=== PATIENT | male | born 1995 | race Caucasian/White ===

== ENCOUNTER → 2023-01-11 | Outpatient (CLI) | payer OTHER ==
[2023-01-11 13:52] LABS: African American GFR (CKD) >90 (>60 ml/min/1.73 sqM); Blood Urea Nitrogen 11 mg/dL (9-20); Non-African American GFR(CKD) >90 (>60 ml/min/1.73 sqM)
[2023-01-11 14:08] LABS: T4, Free (Free Thyroxine) 1.26 ng/dL (0.78-2.19)
[2023-01-11 14:28] LABS: Lithium 0.5 mmol/L
== END | disposition home or self-care (01) ==
LOC: LABMAIN 10:18
PROVIDERS: ATTEND Psychiatry & Neurology Psychiatry
DX: Z53.9 Procedure and treatment not carried out, unspecified reason (principal)
CPT/HCPCS: 80178; 82565; 84439; 84443; 84520

== ENCOUNTER 2023-04-21 18:13 | Emergency (ER) | payer BC, OTHER ==
[2023-04-21] MEDS ORDERED: DIPH,PERTUS(ACELL)TETVAC-LF 0.5 ML VIAL IM ONE (18:56)
[2023-04-21] MEDS ORDERED: LIDOCAINE 1% INJ 10MG/ML (20 ML MDV) SQ ONE (18:56)
--- NOTE | 2023-04-21 18:56 | ED ---
General Adult HPI - General Source: patient, RN notes reviewed Mode of arrival: ambulatory Limitations: no limitations <Shannan Beach - Last Filed: 04/21/23 18:56> - General Source: patient, RN notes reviewed Mode of arrival: ambulatory Limitations: no limitations <Ainsley Centeno - Last Filed: 04/21/23 22:46> - General Chief complaint: Wound/Laceration Stated complaint: R Hand-Ring Finger Lac Time Seen by Provider: 04/21/23 18:56 - History of Present Illness Initial comments: 27-year-old male presents the emergency department with chief complaint of right hand lacerations. (Shannan Beach) Patient is a 27-year-old male presented ER with chief complaint of right finger lacerations. Patient states he was carrying a glass pitcher and accidentally tripped breaking the pitcher. He states his third and fourth digits were cut to from the broken glass. Patient denies any paresthesias, limited range of motion, other injuries or active bleeding. Tetanus unknown. (Ainsley Centeno) - Related Data Allergies Allergy/AdvReac Type Severity Reaction Status Date / Time No Known Allergies Allergy Verified 04/21/23 18:55 Review of Systems ROS Other: All systems not noted in ROS Statement are negative. <Shannan Beach - Last Filed: 04/21/23 18:56> ROS Other: All systems not noted in ROS Statement are negative. <Ainsley Centeno - Last Filed: 04/21/23 22:46> ROS Statement: Those systems with pertinent positive or pertinent negative responses have been documented in the HPI. Past Medical History Past Medical History: Seizure Disorder History of Any Multi-Drug Resistant Organisms: None Reported Past Surgical History: Appendectomy Past Psychological History: Bipolar, Depression Smoking Status: Vaper Past Alcohol Use History: Rare Past Drug Use History: Marijuana <Shannan Beach - Last Filed: 04/21/23 18:56> General Exam Limitations: no limitations <Shannan Beach - Last Filed: 04/21/23 18:56> General appearance: alert, in no apparent distress Head exam: Present: atraumatic, normocephalic, normal inspection Respiratory exam: Present: normal lung sounds bilaterally. Absent: respiratory distress, wheezes, rales, rhonchi, stridor Cardiovascular Exam: Present: regular rate, normal rhythm, normal heart sounds. Absent: systolic murmur, diastolic murmur, rubs, gallop, clicks Extremities exam: Present: normal inspection, full ROM, normal capillary refill, other (1cm laceration to third digit PIP joint. No active bleeding. Deep structures intact. Sensation intact. Full active range of motion. 3 cm laceration noted to fourth PIP joint. No active bleeding. Deep structures are intact. Sensation intact. Full active range of motion.). Absent: tenderness, pedal edema, joint swelling, calf tenderness Neurological exam: Present: alert, oriented X3, CN II-XII intact Psychiatric exam: Present: normal affect, normal mood Skin exam: Present: warm, dry, intact, normal color. Absent: rash <Ainsley Centeno - Last Filed: 04/21/23 22:46> - General Exam Comments Initial Comments: Visual Physical Exam Vital signs reviewed General: Well-appearing, nontoxic, no acute distress. Head: Normocephalic, atraumatic Eyes: PERRLA, EOMI ENT: Airway patent Chest: Nonlabored breathing Skin: No visual rash, normal skin tone Neuro: Alert and oriented 3 Musculoskeletal: No gross abnormalities (Shannan Beach) Course Vital Signs 04/21/23 18:51 Pulse Rate 79 Respiratory 18 Rate Blood Pressure 140/74 O2 Sat by Pulse 96 Oximetry Procedures - Laceration Laceration #1 Consent Obtained: verbal consent Indication: laceration Site: hand Size (cm): 1 Description: linear Depth: simple, single layer Anesthetic Used: lidocaine 1% Anesthesia Technique: local infiltration Amount (mls): 3 Pre-repair: wound explored, irrigated extensively, deep structures intact Type of Sutures: nylon Size of Sutures: 4-0 Number of Sutures: 2 Technique: simple, interrupted Patient Tolerated Procedure: well, no complications Laceration #2 Consent Obtained: verbal consent Indication: laceration Site: hand Size (cm): 3 Description: linear Depth: simple, single layer Anesthetic Used: lidocaine 1% Amount (mls): 3 Pre-repair: wound explored, irrigated extensively, deep structures intact Type of Sutures: nylon Size of Sutures: 4-0 Number of Sutures: 7 Technique: simple, interrupted Patient Tolerated Procedure: well, no complications <Ainsley Centeno - Last Filed: 04/21/23 22:46> Medical Decision Making <Shannan Beach - Last Filed: 04/21/23 18:56> - Radiology Data Radiology results: report reviewed, image reviewed <Ainsley Centeno - Last Filed: 04/21/23 22:46> - Medical Decision Making I performed the quick note portion of this exam, verbal signature Shannan Beach PA-C (Shannan Beach) Was pt. sent in by a medical professional or institution ([facility], RADIATION ONCOLOGY NURSE, urgent care, hospital, or skilled nursing...) When possible be specific @ -No Did you speak to anyone other than the patient for history (EMS, parent, family, police, friend...)? What history was obtained from this source @ -No Did you review nursing and triage notes (agree or disagree)? Why? @ -I reviewed and agree with nursing and triage notes Were old charts reviewed (outside hosp., previous admission, EMS record, old EKG, old radiological studies, urgent care reports/EKG's, skilled nursing records)? Report findings @ -No old charts were reviewed Differential Diagnosis (chest pain, altered mental status, abdominal pain women, abdominal pain men, vaginal bleeding, weakness, fever, dyspnea, syncope, headache, dizziness, GI bleed, back pain, seizure, CVA, palpatations, mental health, musculoskeletal)? @ -Differential Musculoskeletal: Laceration, Muscular strain, contusion, ligament sprain, fracture, arthritis, septic arthritis, bursitis, cellulitis, muscle spasm, nerve compression, DVT, arterial occlusion, herpes zoster, electrolyte abnormality, tumor.... This is not meant to be in all inclusive list EKG interpreted by me (3pts min.). @ -None X-rays interpreted by me (1pt min.). @ -[Right hand x-ray negative for acute foreign body, fracture, or dislocation. CT interpreted by me (1pt min.). @ -None done U/S interpreted by me (1pt. min.). @ -None done What testing was considered but not performed or refused? (CT, X-rays, U/S, labs)? Why? @ -None What meds were considered but not given or refused? Why? @ -None Did you discuss the management of the patient with other professionals (professionals i.e. , PA, RADIATION ONCOLOGY NURSE, lab, RT, psych nurse, web content & social media manager, exhibition specialist, teacher, police officer booking, pillowcase cleaner)? Give summary @ -No Was smoking cessation discussed for >3mins.? @ -No Was critical care preformed (if so, how long)? @ -No Were there social determinants of health that impacted care today? How? (Homelessness, low income, unemployed, alcoholism, drug addiction, transportation, low edu. Level, literacy, decrease access to med. care, shelter, rehab)? @ -No Was there de-escalation of care discussed even if they declined (Discuss DNR or withdrawal of care, Hospice)? DNR status @ -No What co-morbidities impacted this encounter? (DM, HTN, Smoking, COPD, CAD, Cancer, CVA, ARF, Chemo, Hep., AIDS, mental health diagnosis, sleep apnea, morbid obesity)? @ -None Was patient admitted / discharged? Hospital course, mention meds given and route, prescriptions, significant lab abnormalities, going to OR and other pertinent info. @ -Discharge. Patient is a 27-year-old male presented ER with chief complaint of lacerations. Upon examination, patient's vital signs are stable. X-ray showed no acute foreign bodies, fractures or dislocations. Tetanus was updated. Wounds were cleaned with Betadine and sterile water. Lacerations were numbed using lidocaine and closed using 4-0 nylon simple interrupted sutures. Patient tolerated procedure well. Patient maintained full range of motion after procedure. Neurovascularly intact. I advised patient to have sutures removed in 7-10 days. Suture care was discussed. Return parameters were discussed. Patient was discharged stable condition with follow-up to PCP. Patient expressed understanding and agreement with care plan. Undiagnosed new problem with uncertain prognosis? @ -No Drug Therapy requiring intensive monitoring for toxicity (Heparin, Nitro, Insul in, Cardizem)? @ -No Were any procedures done? @ -Yes Diagnosis/symptom? @ -Lacerations Acute, or Chronic, or Acute on Chronic? @ -Acute Uncomplicated (without systemic symptoms) or Complicated (systemic symptoms)? @ -Uncomplicated Side effects of treatment? @ -No Exacerbation, Progression, or Severe Exacerbation? @ -No Poses a threat to life or bodily function? How? (Chest pain, [place], PR, pneumonia, PE, COPD, DKA, ARF, appy, cholecystitis, CVA, Diverticulitis, Homicidal, Suicidal, threat to staff... and all critical care pts) @ -No (Ainsley Centeno) Disposition <Shannan Beach - Last Filed: 04/21/23 18:56> Is patient prescribed a controlled substance at d/c from ED?: No Time of Disposition: 21:48 <Ainsley Centeno - Last Filed: 04/21/23 22:46> Clinical Impression: Laceration Disposition: HOME SELF-CARE Condition: Stable Additional Instructions: Please have sutures removed in 7-10 days. Monitor for signs of infection and keep area clean and dry. Please return to the ER for any new or worsening symptoms. Referrals: None,Stated [REFERRING] - 1-2 days
[2023-04-21 19:15] VITALS: BP 140/74; PULSE 79; RESP 18
--- NOTE | 2023-04-21 22:12 | XR ---
EXAMINATION TYPE: XR hand complete RT DATE OF EXAM: 04/21/2023 8:49 PM CLINICAL INDICATION:Male, 27 years old with history of injury; H COMPARISON: None TECHNIQUE: 3 views right hand FINDINGS: Osseous mineralization appears appropriate. No destructive bony lesion. No acute fracture or dislocat ion. Joint spaces are maintained. Unremarkable soft tissues. No radiopaque foreign body is seen. IMPRESSION: No evidence of fracture or dislocation.
== END 2023-04-21 21:51 | disposition home or self-care (01) ==
LOC: EC 18:13
DX: S61.212A Laceration without foreign body of right middle finger without damage to nail, initial encounter (principal); S61.214A Laceration without foreign body of right ring finger without damage to nail, initial encounter; F17.200 Nicotine dependence, unspecified, uncomplicated; F12.90 Cannabis use, unspecified, uncomplicated; Z23 Encounter for immunization; W25.XXXA Contact with sharp glass, initial encounter
CPT/HCPCS: 73130; 90715; 99283; 12002; 90471; J2001